=== PATIENT | female | born 1985 | race Two or more races ===

== ENCOUNTER 2022-06-24 19:45 | Emergency (ER) | payer OTHER ==
[~2022-06-24] VITALS: Ht 170.2 cm; Wt 104.3 kg
[2022-06-24 20:22] VITALS: BP 146/79
[2022-06-24] MEDS ORDERED: METH4TAB PO (21:26)
[2022-06-24] MEDS ORDERED: KETOROLAC TROMETHAMINE INJ 30 MG/ML VIAL IM ONE (21:30)
[2022-06-24] MEDS ORDERED: KETOROLAC TROMETHAMINE INJ 30 MG/ML VIAL ONE (21:34)
--- NOTE | 2022-06-24 22:04 | NUR ---
Patient discharged to home in stable condition. Written and verbal after care instructions given. Patient verbalizes understanding of instruction.
== END 2022-06-24 22:04 | disposition home or self-care (01) ==
LOC: ER 19:57
DX: Z76.0 Encounter for issue of repeat prescription (principal); M25.571 Pain in right ankle and joints of right foot; M25.562 Pain in left knee; M06.9 Rheumatoid arthritis, unspecified
CPT/HCPCS: 99283; 96372; J1885